=== PATIENT | male | born 1985 | race American Indian/Alaskan Native ===

== ENCOUNTER 2017-08-23 15:12 | Emergency (ER) | payer SELFPAY ==
[2017-08-23 16:57] LABS: Bilirubin,Urine NEG (Negative); Blood,Urine NEG (Negative); Ketones,Urine NEG (Negative); Leukocyte Esterase,Urine TR (Negative); Mucus,Urine 3+ /HPF; Nitrite,Urine NEG (Negative); Protein,Urine <15 mg/dL mg/dL (Negative)
--- NOTE | 2017-08-23 18:10 | Emergency Department Report ---
ED Male HPI - General Chief complaint: Urogenital-Male Stated complaint: URO MALE Time Seen by Provider: 08/23/17 17:11 Source: patient Mode of arrival: Ambulatory Limitations: No Limitations - History of Present Illness Initial comments: This is a 32-year-old male nontoxic, well nourished in appearance, no acute signs of distress presents to the ED complaining of dysuria and polyuria 2 days. Patient denies hematuria, back pain, headache, stiff neck, chest pain, shortness of breathe, fever, chills, n/v, numbness, or tingling. Patient denies any penile discharge or testicular pain. Denies any allergies. PMH includes HIV. Patient stated he does follow-up with a infection disease doctor and is currently having normal CD4 count. MD Complaint: dysuria -: Gradual, days(s) (2) Radiation: none Severity: mild Severity scale (0 -10): 4 Quality: burning Consistency: constant Improves with: none Worsens with: urination dysuria. denies: discharge, swelling, mass, rash, urinary retention, blood in urine, fever, nausea/vomiting, incontinence - Related Data Previous Rx's Medication Instructions Recorded Last Taken Type Levofloxacin [Levaquin TAB] 750 mg PO QDAY #7 tablet 08/23/17 Unknown Rx Allergies Allergy/AdvReac Type Severity Reaction Status Date / Time No Known Allergies Allergy Unverified 06/22/16 20:45 ED Review of Systems ROS: Stated complaint: URO MALE Other details as noted in HPI Constitutional: denies: chills, fever Eyes: denies: eye pain, eye discharge, vision change ENT: denies: ear pain, throat pain Respiratory: denies: cough, shortness of breath, wheezing Cardiovascular: denies: chest pain, palpitations Endocrine: no symptoms reported Gastrointestinal: denies: abdominal pain, nausea, diarrhea Genitourinary: dysuria, frequency. denies: urgency Musculoskeletal: denies: back pain, joint swelling, arthralgia Skin: denies: rash, lesions Neurological: denies: headache, weakness, paresthesias Psychiatric: denies: anxiety, depression Hematological/Lymphatic: denies: easy bleeding, easy bruising ED Past Medical Hx - Past Medical History Previous Medical History?: Yes Hx HIV: Yes - Surgical History Past Surgical History?: No - Social History Smoking Status: Current Every Day Smoker Substance Use Type: None - Medications Home Medications: Home Medications Medication Instructions Recorded Confirmed Last Taken Type Levofloxacin [Levaquin TAB] 750 mg PO QDAY #7 tablet 08/23/17 Unknown Rx ED Physical Exam - General Limitations: No Limitations General appearance: alert, in no apparent distress - Head Head exam: Present: atraumatic, normocephalic, normal inspection - Eye Eye exam: Present: normal appearance, PERRL, EOMI. Absent: scleral icterus, conjunctival injection, nystagmus, periorbital swelling, periorbital tenderness Pupils: Present: normal accommodation - ENT ENT exam: Present: normal exam, normal orophraynx, mucous membranes moist, TM's normal bilaterally, normal external ear exam - Neck Neck exam: Present: normal inspection, full ROM. Absent: tenderness, meningismus, lymphadenopathy, thyromegaly - Respiratory Respiratory exam: Present: normal lung sounds bilaterally. Absent: respiratory distress, wheezes, rales, rhonchi, stridor, chest wall tenderness, accessory muscle use, decreased breath sounds, prolonged expiratory - Cardiovascular Cardiovascular Exam: Present: regular rate, normal rhythm, normal heart sounds. Absent: bradycardia, tachycardia, irregular rhythm, systolic murmur, diastolic murmur, rubs, gallop - GI/Abdominal GI/Abdominal exam: Present: soft, normal bowel sounds. Absent: distended, tenderness, guarding, rebound, rigid, diminished bowel sounds - Rectal Rectal exam: Present: deferred - exam: Present: normal inspection. Absent: testicular tenderness, urethral discharge, scrotal swelling, vertical testicular lie External exam: Present: normal external exam. Absent: erythema, swelling, lesions, lacerations, ecchymosis, bleeding - Extremities Exam Extremities exam: Present: normal inspection, full ROM, normal capillary refill. Absent: tenderness, pedal edema, joint swelling, calf tenderness - Back Exam Back exam: Present: normal inspection, full ROM. Absent: tenderness, CVA tenderness (R), CVA tenderness (L), muscle spasm, paraspinal tenderness, vertebral tenderness, rash noted - Neurological Exam Neurological exam: Present: alert, oriented X3, CN II-XII intact, normal gait, reflexes normal - Psychiatric Psychiatric exam: Present: normal affect, normal mood - Skin Skin exam: Present: warm, dry, intact, normal color. Absent: rash ED Course Vital Signs 08/23/17 16:03 Temperature 98.6 F Pulse Rate 62 Respiratory 16 Rate Blood Pressure 110/84 O2 Sat by Pulse 99 Oximetry - Reevaluation(s) Reevaluation #1: 08/23/17 18:12 Patient is speaking in full sentences with no signs of distress noted. ED Medical Decision Making - Medical Decision Making 32-year-old male that presents with UTI. Patient is stable and was examined by me. There is no CVA tenderness or signs/symptoms of pyelonephritis. Due to patient having immunocompromised HIV patient received levofloxacin 750 mg daily for 7 days. Patient was instructed to follow-up with a primary care doctor in 3- 5 days or if symptoms worsen and continue return to emergency room as soon as possible possible. Patient is hemodynamically stable with stable vital signs. Patient states he is feeling better. At time time of discharge, the patient does not seem toxic or ill in appearance. No acute signs of distress noted. Patient agrees to discharge treatment plan of care. No further questions noted by the patient. Critical care attestation.: If time is entered above; I have spent that time in minutes in the direct care of this critically ill patient, excluding procedure time. ED Disposition Clinical Impression: UTI (urinary tract infection) Qualifiers: Urinary tract infection type: site unspecified Hematuria presence: without hematuria Qualified Code(s): N39.0 - Urinary tract infection, site not specified Disposition: - TO HOME OR SELFCARE Is pt being admited?: No Does the pt Need Aspirin: No Condition: Stable Instructions: Urinary Tract Infection in Men (ED), Levofloxacin (By mouth) Additional Instructions: Follow-up with a primary care doctor in 3-5 days or if symptoms worsen and continue return to emergency room as soon as possible possible. Prescriptions: Levofloxacin [Levaquin TAB] 750 mg PO QDAY #7 tablet Referrals: RICKEY HURTADO MD [Primary Care Provider] - 3-5 Days MURPHY TA MD [Staff Physician] - 3-5 Days [facility] [Outside] - 3-[address] [facility] [Outside] - 3-5 Days Forms: Work/School Release Form(ED)
[2017-08-23 18:37] VITALS: BP 111/72
== END 2017-08-23 18:34 | disposition home or self-care (01) ==
LOC: ED 15:12
DX: N39.0 Urinary tract infection, site not specified (principal); F17.200 Nicotine dependence, unspecified, uncomplicated; Z21 Asymptomatic human immunodeficiency virus [HIV] infection status
CPT/HCPCS: 81001; 99283

== ENCOUNTER 2018-01-14 17:13 | Emergency (ER) | payer SELFPAY ==
--- NOTE | 2018-01-14 18:13 | Emergency Department Report ---
ED Chest Pain HPI - General Chief Complaint: Nausea/Vomiting/Diarrhea Stated Complaint: ABDOMINAL PAIN/VOMITING Time Seen by Provider: 01/14/18 17:40 Source: patient Mode of arrival: Ambulatory Limitations: No Limitations - History of Present Illness MD Complaint: chest pain - Related Data Previous Rx's Medication Instructions Recorded Last Taken Type Levofloxacin [Levaquin TAB] 750 mg PO QDAY #7 tablet 08/23/17 Unknown Rx Allergies Allergy/AdvReac Type Severity Reaction Status Date / Time No Known Allergies Allergy Unverified 06/22/16 20:45 ED Review of Systems ROS: Stated complaint: ABDOMINAL PAIN/VOMITING Other details as noted in HPI ED Past Medical Hx - Past Medical History Hx HIV: Yes - Social History Smoking Status: Never Smoker Substance Use Type: None - Medications Home Medications: Home Medications Medication Instructions Recorded Confirmed Last Taken Type Levofloxacin [Levaquin TAB] 750 mg PO QDAY #7 tablet 08/23/17 Unknown Rx ED Physical Exam - General Limitations: No Limitations ED Course Vital Signs 01/14/18 17:15 Temperature 97.1 F L Pulse Rate 66 Respiratory 16 Rate Blood Pressure 113/69 O2 Sat by Pulse 98 Oximetry Critical care attestation.: If time is entered above; I have spent that time in minutes in the direct care of this critically ill patient, excluding procedure time. ED Disposition Condition: Stable Referrals: PRIMARY CARE, [Primary Care Provider] - 3-5 Days
[2018-01-14] MEDS ORDERED: NACL 0.9% 1000 ML 1,000 ML IV ONE (18:17)
[2018-01-14] MEDS ORDERED: PEPCID IV ONE (18:17)
[2018-01-14] MEDS ORDERED: ZOFRAN IV ONE (18:17)
--- NOTE | 2018-01-14 18:18 | Event Note ---
Date: 01/14/18 Medical screening examination: 5-year-old male presenting with lower abdominal pain, nausea vomiting and lightheadedness. Denies testicular pain. The tender in the lower abdominal region. Check labs, EKG, CT scan of the abdomen and pelvis, patient will also require a testicular exam. Denies irritative, obstructive urinary symptoms. Vital Signs 01/14/18 17:15 Temperature 97.1 F L Pulse Rate 66 Respiratory 16 Rate Blood Pressure 113/69 O2 Sat by Pulse 98 Oximetry
[2018-01-14 18:38] LABS: INR 0.99 (0.87-1.13)
[2018-01-14 18:40] LABS: Hematocrit 44.9 % (35.5-45.6); Hemoglobin 14.4 gm/dl (11.8-15.2); Mean Corpuscular HGB Conc 32 % (32-34); Mean Corpuscular Hemoglobin 31 pg (28-32); Mean Corpuscular Volume 96 fl (84-94); Platelet Count 224 K/mm3 (140-440); Red Cell Distribution Width 12.4 % (13.2-15.2)
[2018-01-14 18:54] LABS: Alanine Aminotransferase 16 units/L (7-56); Albumin 4.4 g/dL (3.9-5); BUN/Creatinine Ratio 13; Blood Urea Nitrogen 14 mg/dL (9-20); Hemolysis Index 14
[2018-01-14] MEDS ORDERED: TYLENOL PO ONE (19:32)
[2018-01-14] MEDS ORDERED: TORADOL ONE (19:45)
[2018-01-14] MEDS ORDERED: TORADOL IV ONE (19:56)
--- NOTE | 2018-01-14 20:21 | Cat Scan Report ---
FINAL REPORT PROCEDURE: CT ABDOMEN PELVIS W CON TECHNIQUE: Computerized axial tomography of the abdomen and pelvis was performed after the IV injection of iodinated nonionic contrast. HISTORY: rlq pain, IV and oral contrast COMPARISON: No prior studies are available for comparison. FINDINGS: Lower Lung almodovar: Lung bases are suboptimally visualized due to breathing motion artifact. There appears to be a small amount of peripheral emphysematous change present. Upper Abdomen: No focal liver lesions are identified. Intrahepatic ducts are not distended. The gallbladder showed no abnormalities. The adrenal glands, the pancreas and the spleen are unremarkable. Kidneys, Ureters and Urinary bladder: There are few low-density nodules in the periphery of the renal cortex measuring under 5 millimeters which are difficult to characterize given their small size although appear to represent renal cortical cysts. Kidneys ureters and urinary bladder otherwise are unremarkable. Retroperitoneum: Abdominal aorta appears normal. Nonspecific subcentimeter lymph nodes are seen in the retroperitoneum. No pathologically enlarged lymph nodes are identified. Bowel: Bowel loops are unremarkable. No evidence of bowel obstruction ascites or free intraperitoneal gas. The cecum projects into right side of the pelvis. The appendix appears to be visualized in the mid pelvis to the right of midline and is unremarkable. Reproductive organs: Prostate gland does not appear to be enlarged. Other: No acute bony abnormalities are identified. IMPRESSION: Small peripheral renal cortical cysts appear to be visualized. No other abnormalities are identified. No abnormalities are seen in the right lower quadrant. The appendix does not appear to be inflamed.
--- NOTE | 2018-01-14 20:31 | Emergency Department Report ---
HPI - General Chief Complaint: Nausea/Vomiting/Diarrhea Time Seen by Provider: 01/14/18 17:40 - HPI HPI: 32-year-old -[place] male with a past medical history of HIV comes in today for complaint of abdominal pain and vomiting. Patient reports that the pain and vomiting started today while at work. Patient reports that the pain is suprapubic and it davis at times. Patient reported that he vomited 2 while at work. He reported that he was lightheaded. Patient reports that he turned quickly he had dizziness and lightheadedness. This was 2 times. Patient denies any fever no chills no dysuria no penile discharge. Patient is followed by Priya muñoz her in [place]. He has had no opportunistic infections he takes his medications on a daily basis. He has had no recent hospitalizations. He does not travel outside the country the last 30 days. ED Past Medical Hx - Past Medical History Hx HIV: Yes - Social History Smoking Status: Never Smoker Substance Use Type: None - Medications Home Medications: Home Medications Medication Instructions Recorded Confirmed Last Taken Type Levofloxacin [Levaquin TAB] 750 mg PO QDAY #7 tablet 08/23/17 Unknown Rx Ibuprofen 600 mg PO Q8H PRN #15 tablet 01/14/18 Unknown Rx ED Review of Systems ROS: Stated complaint: ABDOMINAL PAIN/VOMITING Other details as noted in HPI Constitutional: chills Eyes: denies: eye pain, eye discharge, vision change ENT: denies: ear pain, throat pain Respiratory: denies: cough, shortness of breath, wheezing Cardiovascular: denies: chest pain, palpitations Endocrine: no symptoms reported Gastrointestinal: abdominal pain, nausea, vomiting (2). denies: diarrhea, constipation Genitourinary: denies: dysuria, hematuria, discharge, testicular pain, testicular mass Musculoskeletal: denies: back pain, joint swelling, arthralgia Skin: denies: rash, lesions Neurological: other (dizziness). denies: headache, weakness, paresthesias Psychiatric: denies: anxiety, depression Hematological/Lymphatic: denies: easy bleeding, easy bruising Physical Exam - Physical Exam Vital Signs: Vital Signs 01/14/18 01/14/18 17:15 19:57 Temperature 97.1 F L Pulse Rate 66 Respiratory 16 18 Rate Blood Pressure 113/69 O2 Sat by Pulse 98 Oximetry Physical Exam: GENERAL APPEARANCE: Well developed, well nourished, in no acute distress. SKIN: Inspection of the skin reveals no rashes, ulcerations or petechiae. HEENT: The sclerae were anicteric and conjunctivae were pink and moist. Extraocular movements were intact and pupils were equal, round, and reactive to light with normal accommodation. External inspection of the ears and nose showed no scars, lesions, or masses. Lips, teeth, and gums showed normal mucosa. The oral mucosa, hard and soft palate, tongue and posterior pharynx were normal. NECK: Supple and symmetric. There was no thyroid enlargement, and no tenderness , or masses were felt. CHEST: Normal AP diameter and normal contour without any kyphoscoliosis. LUNGS: Auscultation of the lungs revealed normal breath sounds without any other adventitious sounds or rubs. CARDIOVASCULAR: There was a regular rate and rhythm without any murmurs, gallops , rubs. The carotid pulses were normal and 2+ bilaterally without bruits. Peripheral pulses were 2+ and symmetric. ABDOMEN: Soft and tender suprapubic with normal bowel sounds. The spleen was not palpable. There were no inguinal or umbilical hernias noted. No ascites was noted. : Circumcised, no testicular masses or testicular pain no penile discharge there is bilateral lymphadenopathy. Suprapubic tenderness at the symphysis. LYMPH NODES: No lymphadenopathy was appreciated in the neck and axillae. Bilateral lymphadenopathy groin. MUSCULOSKELETAL: Gait was normal. There was no tenderness or effusions noted. Muscle strength and tone were normal. EXTREMITIES: No cyanosis, clubbing or edema. NEUROLOGIC: Alert and oriented x 3. Normal affect. Gait was normal. Sensation to touch was normal. ED Course Vital Signs 01/14/18 01/14/18 17:15 19:57 Temperature 97.1 F L Pulse Rate 66 Respiratory 16 18 Rate Blood Pressure 113/69 O2 Sat by Pulse 98 Oximetry ED Medical Decision Making - Lab Data Result diagrams: 01/14/18 18:21 01/14/18 18:21 - Medical Decision Making Patient has been evaluated by this provider as well as and fast track. CBC CMP coags urinalysis EKG and CT of the abdomen with contrast has been ordered. Patient also had Toradol and Zofran normal saline. Patient reports that he feels much better after having pain medication. CT showed just some possible renal cortex cysts. Appendix is visualized with no. Fluid or enlargement. If urinalysis comes back negative and EKG comes back negative. We will treat patient for Chlamydia azithromycin as this can also explain why patient has suprapubic pain. We will discharge patient home for him to follow up with his primary care provider. Patient verbalized understanding Critical care attestation.: If time is entered above; I have spent that time in minutes in the direct care of this critically ill patient, excluding procedure time. ED Disposition Clinical Impression: Abdominal pain in male Disposition: DC-01 TO HOME OR SELFCARE Is pt being admited?: No Does the pt Need Aspirin: No Condition: Stable Instructions: Acute Abdominal Pain (ED) Additional Instructions: Please follow up with your primary care provider for further evaluation. Prescriptions: Ibuprofen 600 mg PO Q8H PRN #15 tablet PRN Reason: Pain Referrals: PRIMARY CARE, [Primary Care Provider] - 3-5 Days Forms: Work/School Release Form(ED), Accompanied Note
[2018-01-14 20:47] VITALS: BP 112/71
[2018-01-14] MEDS ORDERED: ZITHROMAX PO ONE (20:49)
[2018-01-14 21:42] LABS: Bilirubin,Urine NEG (Negative); Blood,Urine NEG (Negative); Color,Urine Yellow (Yellow); Mucus,Urine FEW /HPF; Protein,Urine <15 mg/dL mg/dL (Negative)
== END 2018-01-14 22:18 | disposition home or self-care (01) ==
LOC: ED 17:13
DX: R10.9 Unspecified abdominal pain (principal); R11.2 Nausea with vomiting, unspecified; R42 Dizziness and giddiness
CPT/HCPCS: 36415; 74177; 80053; 81001; 85027; 85610; 87591; 93005; 93010; 96361; 96374; 96375; 99284; J1885; J2405; J7030; Q9967

== ENCOUNTER 2018-02-20 14:49 | Emergency (ER) | payer OTHER ==
[2018-02-20 19:07] LABS: Basophils % (Auto) 0.4 % (0.0-1.8); Eosinophils # (Auto) 0.1 K/mm3 (0.0-0.4); Eosinophils % (Auto) 0.7 % (0.0-4.3); Hematocrit 45.2 % (35.5-45.6); Hemoglobin 15.1 gm/dl (11.8-15.2); Lymphocytes # (Auto) 1.9 K/mm3 (1.2-5.4); Lymphocytes % (Auto) 21.4 % (13.4-35.0); Mean Corpuscular HGB Conc 33 % (32-34); Mean Corpuscular Hemoglobin 31 pg (28-32); Mean Corpuscular Volume 94 fl (84-94); Monocytes # (Auto) 0.6 K/mm3 (0.0-0.8); Monocytes % (Auto) 6.6 % (0.0-7.3); Platelet Count 214 K/mm3 (140-440); Red Blood Count 4.81 M/mm3 (3.65-5.03); Red Cell Distribution Width 12.7 % (13.2-15.2)
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
[2018-02-20 19:32] LABS: Alanine Aminotransferase 13 units/L (7-56); Albumin 4.3 g/dL (3.9-5); BUN/Creatinine Ratio 10; Blood Urea Nitrogen 10 mg/dL (9-20); Calcium 8.8 mg/dL (8.4-10.2); Hemolysis Index 13; Lipase 20 units/L (13-60)
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
[2018-02-20 21:35] VITALS: BP 124/72
== END 2018-02-20 21:35 | disposition home or self-care (01) ==
LOC: ED 14:49
DX: S10.91XA Abrasion of unspecified part of neck, initial encounter (principal); R13.10 Dysphagia, unspecified; Y08.89XA Assault by other specified means, initial encounter; Y93.89 Activity, other specified; Y92.89 Other specified places as the place of occurrence of the external cause; Y99.8 Other external cause status
CPT/HCPCS: 36415; 70491; 80053; 83690; 85025; 99284; Q9967